=== PATIENT | male | born 1945 | race Caucasian/White ===

== ENCOUNTER 2018-10-28 07:44 | Emergency (ER) | payer OTHER ==
[~2018-10-28] VITALS: Ht 175.3 cm; Wt 67.1 kg
[~2018-10-28 07:44] MED LIST: AMOX-426 PO; ASPI-1153 PO; CALC-823 PO; CARI350T27 PO; CYAN50004 PO; DIF100 PO; GLUC100017 PO; IBUP100T53 PO; LISI10TA5 PO; METO-290 PO; OMEG300C3 PO; OMEP20CA10 PO; TRAM100T34 PO; VITA0.4T18 PO
[2018-10-28 07:58] VITALS: BP_SYST 132
[2018-10-28] MEDS ORDERED: MAG HYDROX/AL HYDROX/SIMETH 30 ML, DICYCLOMINE HCL 20 MG, LIDOCAINE VISCOUS 2% 15ML (PO... PO ONE ×3 (08:15)
[2018-10-28] MEDS ORDERED: NACL 0.9% 1,000 ML IV ONE (08:15)
[2018-10-28 08:51] LABS: BASOPHILS % (AUTO) 0.7 % (0.0-2.0); EOSINOPHILS # (AUTO) 0.1 K/uL (0.0-0.4); EOSINOPHILS % (AUTO) 1.3 % (0.0-4.0); HEMATOCRIT 38.5 % (36-54); HEMOGLOBIN 13.5 g/dL (14.0-18.0); LYMPHOCYTES # (AUTO) 1.7 K/uL (1.0-5.5); LYMPHOCYTES % (AUTO) 28.7 % (20.5-51.5); MEAN CORPUSCULAR HEMOGLOBIN 31 pg (27-31); MEAN CORPUSCULAR HGB CONC 35 % (32-36); MEAN CORPUSCULAR VOLUME 90 fL (79.0-98.0); MONOCYTES # (AUTO) 0.5 K/uL (0.0-1.0); MONOCYTES % (AUTO) 8.6 % (1.7-9.3); NEUTROPHILS # (AUTO) 3.7 K/uL (1.8-7.7); NEUTROPHILS % (AUTO) 60.7 % (40.0-70.0); PLATELET COUNT (AUTO) 191 K/uL (130-430); RED CELL DISTRIBUTION WIDTH 12.6 % (9.0-15.0); WHITE BLOOD COUNT (AUTO) 6.1 K/uL (4.8-10.8)
[2018-10-28 08:58] LABS: ANION GAP 12 (5-15); CALCIUM 9.8 mg/dL (8.4-11.0); CHLORIDE 96 mmol/L (98-107); CREATININE 1.13 mg/dL (0.55-1.30); GLUCOSE 91 mg/dL (70-99); POTASSIUM 3.7 mmol/L (3.5-5.1); SODIUM SERUM 132 mmol/L (136-145); UREA NITROGEN, BLOOD 22 mg/dL (8-21)
[2018-10-28 09:02] LABS: ALANINE AMINOTRANSFERASE 29 U/L (12-78); ALBUMIN 3.7 g/dL (3.4-4.8); ASPARTATE AMINOTRANSFERASE 19 U/L (10-37); LIPASE 125 U/L (73-393); TOTAL BILIRUBIN 1.3 mg/dL (0.0-1.0)
[2018-10-28] MEDS ORDERED: IOHEXOL 100 ML IV ONE (09:32)
[2018-10-28 11:10] LABS: BILIRUBIN,URINE NEGATIVE (NEGATIVE); BLOOD, URINE 2+ (NEGATIVE); CLARITY/URINE SL HAZY (CLEAR); COLOR,URINE YELLOW (YELLOW); GLUCOSE,URINE NEGATIVE (NEGATIVE); KETONES,URINE 2+ (NEGATIVE); LEUKOCYTE ESTERASE ,URINE NEGATIVE (NEGATIVE); NITRITE, URINE NEGATIVE (NEGATIVE); PH,URINE 8.5 (5.0-8.0); PROTEIN URINE NEGATIVE (NEGATIVE)
[2018-10-28 11:17] LABS: BACTERIA,URINE RARE /HPF (None Seen); WBC,URINE 0-3 /HPF (0-3)
[2018-10-28 12:59] VITALS: BP_SYST 135
== END 2018-10-28 12:59 | disposition home or self-care (01) ==
LOC: SED 07:44
DX: R10.13 Epigastric pain (principal); R13.10 Dysphagia, unspecified; I10 Essential (primary) hypertension; Z79.82 Long term (current) use of aspirin; Z79.899 Other long term (current) drug therapy
CPT/HCPCS: 36415; 71045; 74177; 80053; 81000; 83605; 83690; 84484; 85025; 99284; J2001; J7030; Q9967

== ENCOUNTER 2018-12-20 19:20 | Inpatient (IN) | payer OTHER ==
[~2018-12-20] VITALS: Ht 175.3 cm; Wt 66.2 kg
[~2018-12-20 19:20] MED LIST changes: -AMOX-426 PO; -DIF100 PO; -METO-290 PO; -OMEG300C3 PO; -VITA0.4T18 PO
[2018-12-20 19:25] VITALS: BP_SYST 153
[2018-12-20] MEDS ORDERED: NACL 0.9% 1,000 ML IV ONE (21:00)
[2018-12-20] MEDS ORDERED: KETOROLAC TROMETHAMINE 15 MG VIAL IVP ONE (21:00)
[2018-12-20] MEDS ORDERED: MORPHINE 2 MG/ML INJ. SYRINGE IVP ONE (21:00)
[2018-12-20 21:19] LABS: HEMATOCRIT 45.1 % (36-54); HEMOGLOBIN 15.6 g/dL (14.0-18.0); MEAN CORPUSCULAR HEMOGLOBIN 32 pg (27-31); MEAN CORPUSCULAR HGB CONC 35 % (32-36); MEAN CORPUSCULAR VOLUME 92 fL (79.0-98.0); PLATELET COUNT (AUTO) 220 K/uL (130-430); WHITE BLOOD COUNT (AUTO) 22.2 K/uL (4.8-10.8)
[2018-12-20 21:28] LABS: ANION GAP 10 (5-15); CALCIUM 10.1 mg/dL (8.4-11.0); CHLORIDE 100 mmol/L (98-107); CREATININE 1.29 mg/dL (0.55-1.30); GLUCOSE 184 mg/dL (70-99); POTASSIUM 3.6 mmol/L (3.5-5.1); SODIUM SERUM 135 mmol/L (136-145); UREA NITROGEN, BLOOD 18 mg/dL (8-21)
[2018-12-20 21:33] LABS: ALANINE AMINOTRANSFERASE 15 U/L (12-78); ASPARTATE AMINOTRANSFERASE 17 U/L (10-37); TOTAL BILIRUBIN 1.6 mg/dL (0.0-1.0)
[2018-12-20 21:34] LABS: BAND % (MANUAL) 7 % (0-6); BASOPHILS % (MANUAL) 0 % (0-2); EOSINOPHILS % (MANUAL) 0 % (0-7); LYMPHOCYTES % (MANUAL) 3 % (20-46); MONOCYTES % (MANUAL) 5 % (0-11)
[2018-12-20] MEDS ORDERED: VANCOMYCIN HCL 1,000 MG in NS 250 ML IV ONE ×2 (22:15→22:30)
[2018-12-20] MEDS ORDERED: PIPERACILLIN/TAZO 3.375 GM in NS 50 ML IV ONE ×2 (22:15→22:30)
[2018-12-20] MEDS ORDERED: metroNIDAZOLE 500 mg/NS 100 ML IV ONE (22:30)
[2018-12-20] MEDS ORDERED: IOHEXOL 100 ML IV ONE (22:58)
[2018-12-20] MEDS ORDERED: PIPERACILLIN/TAZOBACTAM 3.375 GM/VIAL (ZOSYN) IV ONE (23:09)
[2018-12-21] MEDS ORDERED: NACL 0.9% 1,000 ML IV ONE
[2018-12-21 00:17] LABS: BILIRUBIN,URINE 2+ (NEGATIVE); BLOOD, URINE 3+ (NEGATIVE); CLARITY/URINE CLEAR (CLEAR); COLOR,URINE BROWN (YELLOW); GLUCOSE,URINE NEGATIVE (NEGATIVE); KETONES,URINE 1+ (NEGATIVE); LEUKOCYTE ESTERASE ,URINE NEGATIVE (NEGATIVE); NITRITE, URINE POSITIVE (NEGATIVE); PH,URINE 5.5 (5.0-8.0); PROTEIN URINE 1+ (NEGATIVE)
[2018-12-21 00:30] LABS: BACTERIA,URINE MODERATE /HPF (None Seen); WBC,URINE 0-3 /HPF (0-3)
[2018-12-21] MEDS ORDERED: ACETAMINOPHEN 325 MG TABLET PO PRN (00:30)
[2018-12-21] MEDS ORDERED: MORPHINE 4 MG/ML INJ. SYRINGE IVP PRN (00:30)
[2018-12-21] MEDS ORDERED: metroNIDAZOLE 500 MG TABLET PO ONE (01:15)
[2018-12-21 01:48] VITALS: BP_SYST 162
[2018-12-21] MEDS: NACL 0.9% 1,000 ML IV SCH ×3 (02:39→21:27)
[2018-12-21] MEDS: cloNIDine HCL 0.1 MG TABLET PO PRN ×2 (02:40→23:19)
[2018-12-21] MEDS ORDERED: PIPERACILLIN/TAZOBACTAM 3.375 GM/VIAL (ZOSYN) IV ONE (03:25)
[2018-12-21] MEDS: PIPERACILLIN/TAZO 3.375 GM in NS 50 ML IV SCH ×4 (05:41→23:19)
[2018-12-21 07:55] VITALS: BP_SYST 143
[2018-12-21 12:00] VITALS: BP_SYST 147
[2018-12-21] MEDS ORDERED: TAMSULOSIN HCL 0.4 MG CAP PO ONE (14:00)
[2018-12-21 14:22] LABS: BASOPHILS % (AUTO) 0.1 % (0.0-2.0); EOSINOPHILS % (AUTO) 0.2 % (0.0-4.0); HEMATOCRIT 37.3 % (36-54); HEMOGLOBIN 12.8 g/dL (14.0-18.0); LYMPHOCYTES # (AUTO) 1.2 K/uL (1.0-5.5); LYMPHOCYTES % (AUTO) 10.2 % (20.5-51.5); MEAN CORPUSCULAR HEMOGLOBIN 32 pg (27-31); MEAN CORPUSCULAR HGB CONC 34 % (32-36); MEAN CORPUSCULAR VOLUME 92 fL (79.0-98.0); MONOCYTES # (AUTO) 0.7 K/uL (0.0-1.0); MONOCYTES % (AUTO) 6.6 % (1.7-9.3); NEUTROPHILS # (AUTO) 9.4 K/uL (1.8-7.7); NEUTROPHILS % (AUTO) 82.9 % (40.0-70.0); PLATELET COUNT (AUTO) 165 K/uL (130-430); RED BLOOD CELL COUNT(AUTO) 4.03 MIL/uL (4.2-6.2); RED CELL DISTRIBUTION WIDTH 13.4 % (9.0-15.0); WHITE BLOOD COUNT (AUTO) 11.3 K/uL (4.8-10.8)
[2018-12-21 14:28] LABS: ANION GAP 8 (5-15); CALCIUM 8.4 mg/dL (8.4-11.0); CHLORIDE 107 mmol/L (98-107); CREATININE 0.97 mg/dL (0.55-1.30); GLUCOSE 115 mg/dL (70-99); SODIUM SERUM 140 mmol/L (136-145); UREA NITROGEN, BLOOD 19 mg/dL (8-21)
[2018-12-21 16:00] VITALS: BP_SYST 156
[2018-12-21 19:55] VITALS: BP_SYST 146
[2018-12-21] MEDS ORDERED: GLUCOSAMINE SULFATE 1500 MG PO SCH (21:00)
[2018-12-21] MEDS: LACTOBACILLUS RHAMNOSUS GG 1 CAP CAPSULE PO SCH (21:26)
[2018-12-21] MEDS: TAMSULOSIN HCL 0.4 MG CAP PO SCH (21:26)
[2018-12-22] MEDS: MORPHINE 2 MG/ML INJ. SYRINGE IVP PRN ×2 (01:51→14:41)
[2018-12-22 03:10] VITALS: BP_SYST 151
[2018-12-22] MEDS: PIPERACILLIN/TAZO 3.375 GM in NS 50 ML IV SCH ×3 (05:24→18:24)
[2018-12-22 06:21] LABS: BASOPHILS % (AUTO) 0.3 % (0.0-2.0); EOSINOPHILS # (AUTO) 0.1 K/uL (0.0-0.4); EOSINOPHILS % (AUTO) 0.8 % (0.0-4.0); LYMPHOCYTES # (AUTO) 1.3 K/uL (1.0-5.5); MEAN CORPUSCULAR HEMOGLOBIN 32 pg (27-31); MEAN CORPUSCULAR HGB CONC 34 % (32-36); MEAN CORPUSCULAR VOLUME 93 fL (79.0-98.0); MONOCYTES # (AUTO) 0.6 K/uL (0.0-1.0); NEUTROPHILS # (AUTO) 6.6 K/uL (1.8-7.7); NEUTROPHILS % (AUTO) 76.9 % (40.0-70.0); PLATELET COUNT (AUTO) 130 K/uL (130-430); RED BLOOD CELL COUNT(AUTO) 3.44 MIL/uL (4.2-6.2); RED CELL DISTRIBUTION WIDTH 13.1 % (9.0-15.0); WHITE BLOOD COUNT (AUTO) 8.5 K/uL (4.8-10.8)
[2018-12-22 06:51] LABS: ALANINE AMINOTRANSFERASE 13 U/L (12-78); ALBUMIN 2.5 g/dL (3.4-4.8); ANION GAP 6 (5-15); ASPARTATE AMINOTRANSFERASE 12 U/L (10-37); CALCIUM 8.5 mg/dL (8.4-11.0); CHLORIDE 108 mmol/L (98-107); CREATININE 0.85 mg/dL (0.55-1.30); GLUCOSE 113 mg/dL (70-99); POTASSIUM 3.7 mmol/L (3.5-5.1); SODIUM SERUM 142 mmol/L (136-145); TOTAL BILIRUBIN 0.7 mg/dL (0.0-1.0); UREA NITROGEN, BLOOD 11 mg/dL (8-21)
[2018-12-22 08:01] VITALS: BP_SYST 140
[2018-12-22] MEDS: LACTOBACILLUS RHAMNOSUS GG 1 CAP CAPSULE PO SCH ×2 (09:01→20:16)
[2018-12-22] MEDS: CALCIUM CARBONATE/VITAMIN D3 1 TAB TABLET PO SCH (09:02)
[2018-12-22] MEDS: ASPIRIN 81 MG TABLET(ECOTRIN) PO SCH (09:02)
[2018-12-22] MEDS: TAMSULOSIN HCL 0.4 MG CAP PO SCH ×2 (09:02→20:16)
[2018-12-22] MEDS: PANTOPRAZOLE SODIUM 40 MG TAB PO SCH (09:02)
[2018-12-22] MEDS: CYANOCOBALAMIN 1000 mCg TABLET PO SCH (09:02)
[2018-12-22 11:27] VITALS: BP_SYST 148
[2018-12-22 15:39] VITALS: BP_SYST 149
[2018-12-22] MEDS ORDERED: IOHEXOL 350 mgI/mL, 150 ML INFUS..BTL IV ONE (17:50)
[2018-12-22] MEDS: D5LR 1,000 ML IV SCH (18:25)
[2018-12-22 19:50] VITALS: BP_SYST 146
[2018-12-23] VITALS: BP_SYST 140
[2018-12-23] MEDS: PIPERACILLIN/TAZO 3.375 GM in NS 50 ML IV SCH ×2 (02:37→06:06)
[2018-12-23] MEDS: D5LR 1,000 ML IV SCH (06:07)
[2018-12-23 07:31] LABS: BASOPHILS % (AUTO) 0.4 % (0.0-2.0); EOSINOPHILS # (AUTO) 0.1 K/uL (0.0-0.4); EOSINOPHILS % (AUTO) 2.1 % (0.0-4.0); HEMATOCRIT 32.2 % (36-54); HEMOGLOBIN 11.6 g/dL (14.0-18.0); LYMPHOCYTES # (AUTO) 1.2 K/uL (1.0-5.5); MEAN CORPUSCULAR HEMOGLOBIN 33 pg (27-31); MEAN CORPUSCULAR HGB CONC 36 % (32-36); MEAN CORPUSCULAR VOLUME 92 fL (79.0-98.0); MONOCYTES # (AUTO) 0.4 K/uL (0.0-1.0); MONOCYTES % (AUTO) 6.7 % (1.7-9.3); NEUTROPHILS # (AUTO) 4.6 K/uL (1.8-7.7); NEUTROPHILS % (AUTO) 71.8 % (40.0-70.0); PLATELET COUNT (AUTO) 126 K/uL (130-430); RED BLOOD CELL COUNT(AUTO) 3.52 MIL/uL (4.2-6.2); RED CELL DISTRIBUTION WIDTH 12.8 % (9.0-15.0); WHITE BLOOD COUNT (AUTO) 6.3 K/uL (4.8-10.8)
[2018-12-23 07:38] LABS: CHOLESTEROL 140 mg/dL (<200); HDL CHOLESTEROL 45 mg/dL (>45); LDL CHOLESTEROL 76 mg/dL (<100); TRIGLYCERIDES 70 mg/dL (30-150)
[2018-12-23 08:12] LABS: SODIUM SERUM 137 mmol/L (136-145)
[2018-12-23 08:21] LABS: ANION GAP 9 (5-15); CHLORIDE 104 mmol/L (98-107); GLUCOSE 110 mg/dL (70-99); POTASSIUM 2.8 mmol/L (3.5-5.1)
[2018-12-23 08:22] LABS: CALCIUM 9.1 mg/dL (8.4-11.0); CREATININE 0.91 mg/dL (0.55-1.30); UREA NITROGEN, BLOOD 4 mg/dL (8-21)
[2018-12-23] MEDS: MORPHINE 2 MG/ML INJ. SYRINGE IVP PRN ×3 (08:46→23:29)
[2018-12-23] MEDS: TAMSULOSIN HCL 0.4 MG CAP PO SCH ×2 (08:49→20:03)
[2018-12-23] MEDS: CYANOCOBALAMIN 1000 mCg TABLET PO SCH (08:50)
[2018-12-23] MEDS: PANTOPRAZOLE SODIUM 40 MG TAB PO SCH (08:50)
[2018-12-23] MEDS: CALCIUM CARBONATE/VITAMIN D3 1 TAB TABLET PO SCH (08:50)
[2018-12-23] MEDS: ASPIRIN 81 MG TABLET(ECOTRIN) PO SCH (08:50)
[2018-12-23] MEDS: LACTOBACILLUS RHAMNOSUS GG 1 CAP CAPSULE PO SCH ×2 (08:51→20:03)
[2018-12-23] MEDS ORDERED: POTASSIUM CHLORIDE 20 MEQ TAB.PRT.SR PO ONE ×2 (10:00→17:15)
[2018-12-23 11:21] VITALS: BP_SYST 147
[2018-12-23] MEDS: cefTRIAXone 1 GM in D5W 50 ML IV SCH (13:55)
[2018-12-23 15:54] VITALS: BP_SYST 148
[2018-12-23] MEDS ORDERED: traMADol HCL HCL 50 MG TABLET (ULTRAM) PO ONE (18:15)
[2018-12-23 19:50] VITALS: BP_SYST 144
[2018-12-23] MEDS: POTASSIUM CHLORIDE 20 MEQ TAB.PRT.SR PO SCH (20:03)
[2018-12-23] MEDS: traMADol HCL HCL 50 MG TABLET (ULTRAM) PO SCH (20:04)
[2018-12-24] VITALS: BP_SYST 140
[2018-12-24 07:36] LABS: ANION GAP 6 (5-15); CALCIUM 9.4 mg/dL (8.4-11.0); CHLORIDE 103 mmol/L (98-107); CREATININE 0.77 mg/dL (0.55-1.30); FREE T4 (FREE THYROXINE) 0.9 ng/dl (0.8-1.5); GLUCOSE 89 mg/dL (70-99); POTASSIUM 3.7 mmol/L (3.5-5.1); SODIUM SERUM 136 mmol/L (136-145); THYROID STIMULATING HORMONE 1.51 uIu/mL (0.36-3.74); UREA NITROGEN, BLOOD 4 mg/dL (8-21)
[2018-12-24 08:00] VITALS: BP_SYST 145
[2018-12-24] MEDS: cefTRIAXone 1 GM in D5W 50 ML IV SCH (08:27)
[2018-12-24] MEDS: LACTOBACILLUS RHAMNOSUS GG 1 CAP CAPSULE PO SCH (08:28)
[2018-12-24] MEDS: TAMSULOSIN HCL 0.4 MG CAP PO SCH (08:28)
[2018-12-24] MEDS: PANTOPRAZOLE SODIUM 40 MG TAB PO SCH (08:29)
[2018-12-24] MEDS: CALCIUM CARBONATE/VITAMIN D3 1 TAB TABLET PO SCH (08:29)
[2018-12-24] MEDS: traMADol HCL HCL 50 MG TABLET (ULTRAM) PO SCH (08:29)
[2018-12-24] MEDS: CYANOCOBALAMIN 1000 mCg TABLET PO SCH (08:29)
[2018-12-24] MEDS: ASPIRIN 81 MG TABLET(ECOTRIN) PO SCH (08:29)
[2018-12-24] MEDS: POTASSIUM CHLORIDE 20 MEQ TAB.PRT.SR PO SCH (08:29)
[2018-12-24 12:20] VITALS: BP_SYST 135
[2018-12-24] MEDS ORDERED: FLA250 PO (14:55)
[2018-12-24 16:01] VITALS: BP_SYST 135
[2018-12-24 16:35] VITALS: BP_SYST 116
== END 2018-12-24 16:30 | disposition home health service (06) | DRG 871 ==
LOC: SED 19:20 → STU 12-21 00:27 → OBSVTOIN 12-21 00:27 → STU 12-21 01:18
PROVIDERS: ADMIT Internal Medicine; ATTEND Internal Medicine
DX: A41.9 Sepsis, unspecified organism (principal); E43 Unspecified severe protein-calorie malnutrition; N39.0 Urinary tract infection, site not specified; E87.2 Acidosis; K52.9 Noninfective gastroenteritis and colitis, unspecified; D64.9 Anemia, unspecified; E86.0 Dehydration; I10 Essential (primary) hypertension; K21.9 Gastro-esophageal reflux disease without esophagitis; K59.00 Constipation, unspecified; M19.90 Unspecified osteoarthritis, unspecified site; R07.89 Other chest pain; E87.6 Hypokalemia; Z68.21 Body mass index [BMI] 21.0-21.9, adult; Z80.3 Family history of malignant neoplasm of breast; Z80.8 Family history of malignant neoplasm of other organs or systems; Z87.891 Personal history of nicotine dependence; Z79.899 Other long term (current) drug therapy; Z79.82 Long term (current) use of aspirin
CPT/HCPCS: 36415; 71046-TC; 71275; 74018; 80048; 80053; 80061; 81000-TC; 82550-TC; 83605; 83735-TC; 84439; 84443-TC; 84484; 85007; 85025; 85027; 85379; 85730-TC; 87040-TC; 87045-TC; 87046; 87086; 87230-TC; 89055; 93005; 93306; 93970; 96361; 96365; 96372; 99285; G0378; J0696; J1885; J2270; J2543; J7030; J7060; J7120; Q9967

== ENCOUNTER 2019-07-09 12:06 | Emergency (ER) | payer OTHER ==
[~2019-07-09] VITALS: Ht 177.8 cm; Wt 63.5 kg
[~2019-07-09 12:06] MED LIST changes: +FLA250 PO; -IBUP100T53 PO; -OMEP20CA10 PO; +OMEP20CA11 PO
[2019-07-09 12:25] VITALS: BP_SYST 127
--- NOTE | 2019-07-09 12:27 | NUR ---
Patient to ER bed 07 to gown for evaluation. Side rails up.
--- NOTE | 2019-07-09 12:30 | NUR ---
Pt brought by self, ambulatory , A&Ox4 , pt presents to ER with constipation x 2 days, denies N/V , skin pink and warm, cap refill <3, VSS, afebrile ,respirations even and unlabored.
--- NOTE | 2019-07-09 13:05 | NUR ---
Dr Max at bedside examining patient
[2019-07-09 13:43] VITALS: BP_SYST 127
--- NOTE | 2019-07-09 13:45 | NUR ---
Patient given written and verbal discharge instructions and verbalizes understanding. ER MD discussed with patient the results and treatment provided. Patient in stable condition. ID arm band removed. IV catheter removed intact and dressing applied, no active bleeding. Rx of Glycerin suppository and Mag Citrate given. Patient educated on pain management and to follow up with PMD. Pain Scale 2/10 tolerable for pt. Opportunity for questions provided and answered. Medication side effect fact sheet provided.
== END 2019-07-09 13:42 | disposition home or self-care (01) ==
LOC: SED 12:06
DX: K59.00 Constipation, unspecified (principal); R10.9 Unspecified abdominal pain; K21.9 Gastro-esophageal reflux disease without esophagitis; I10 Essential (primary) hypertension; Z79.82 Long term (current) use of aspirin; Z79.899 Other long term (current) drug therapy
CPT/HCPCS: 74018; 99283

== ENCOUNTER 2020-01-27 15:45 | Emergency (ER) | payer OTHER ==
[~2020-01-27] VITALS: Ht 177.8 cm; Wt 62.6 kg
[~2020-01-27 15:45] MED LIST changes: -ASPI-1153 PO; +ASPI-1393 PO; -OMEP20CA11 PO; +OMEP20CA15 PO
--- NOTE | 2020-01-27 16:03 | NUR ---
Patient to ER bed 02 to gown for evaluation. Side rails up.
[2020-01-27 16:04] VITALS: BP_SYST 142
--- NOTE | 2020-01-27 16:04 | NUR ---
Patient arrived in the ED c/o abdominal pain for the last 2 months. Denied any chest pain or shortness of breath. Denied any fevers, chills, nausea or vomiting. Patient is alert and oriented x4, respirations even and unlabored, speaking in full sentences, and ambulating with a steady gait. VSS, pain level 8/10. Informed of the approximate wait time. Instructed to notify ED staff for any changes in condition or worsening of symptoms while waiting to be seen by an ED provider. Patient verbalized understanding.
--- NOTE | 2020-01-27 16:06 | NUR ---
Dr Porter evaluating patient at bedside
--- NOTE | 2020-01-27 16:09 | NUR ---
Patient ambulated to the bathroom with a steady gait. Urine specimen collected as ordered by Dr. Porter.
[2020-01-27] MEDS ORDERED: MAG HYDROX/AL HYDROX/SIMETH 30 ML, DICYCLOMINE HCL 20 MG, LIDOCAINE VISCOUS 2% 15ML (PO... PO ONE ×3 (16:15)
--- NOTE | 2020-01-27 16:16 | NUR ---
Administered GI Cocktail PO as ordered by Dr. Porter. Patient tolerated the medications well. See eMAR for details.
--- NOTE | 2020-01-27 16:25 | NUR ---
Patient ambulated to the bathroom with a steady gait.
[2020-01-27 16:53] LABS: BASOPHILS % (AUTO) 0.4 % (0.0-2.0); EOSINOPHILS # (AUTO) 0.1 K/uL (0.0-0.4); EOSINOPHILS % (AUTO) 1.6 % (0.0-4.0); HEMATOCRIT 28.3 % (36-54); HEMOGLOBIN 9.2 g/dL (14.0-18.0); LYMPHOCYTES % (AUTO) 20.6 % (20.5-51.5); MEAN CORPUSCULAR HEMOGLOBIN 26 pg (27-31); MEAN CORPUSCULAR HGB CONC 33 % (32-36); MEAN CORPUSCULAR VOLUME 80 fL (79.0-98.0); MONOCYTES # (AUTO) 0.4 K/uL (0.0-1.0); MONOCYTES % (AUTO) 7.3 % (1.7-9.3); NEUTROPHILS # (AUTO) 3.4 K/uL (1.8-7.7); NEUTROPHILS % (AUTO) 70.1 % (40.0-70.0); PLATELET COUNT (AUTO) 182 K/uL (130-430); RED BLOOD CELL COUNT(AUTO) 3.55 MIL/uL (4.2-6.2); RED CELL DISTRIBUTION WIDTH 14.3 % (9.0-15.0); WHITE BLOOD COUNT (AUTO) 4.8 K/uL (4.8-10.8)
[2020-01-27 17:05] LABS: ANION GAP 6 (5-15); CHLORIDE 101 mmol/L (98-107); CREATININE 1.07 mg/dL (0.55-1.30); GLUCOSE 145 mg/dL (70-99); POTASSIUM 3.8 mmol/L (3.5-5.1); SODIUM SERUM 137 mmol/L (136-145); UREA NITROGEN, BLOOD 19 mg/dL (8-21)
[2020-01-27 17:10] LABS: ALANINE AMINOTRANSFERASE 16 U/L (12-78); ALBUMIN 3.3 g/dL (3.4-4.8); ASPARTATE AMINOTRANSFERASE 9 U/L (10-37); LIPASE 30 U/L (73-393); TOTAL BILIRUBIN 0.4 mg/dL (0.0-1.0)
[2020-01-27 18:37] VITALS: BP_SYST 142
--- NOTE | 2020-01-27 18:38 | NUR ---
Patient given written and verbal discharge instructions and verbalizes understanding. ER MD discussed with patient the results and treatment provided. Patient in stable condition. ID arm band removed. Rx of Prilosec, Cipro, Motrin, Flagyl, and Myra given. Patient educated on pain management and to follow up with PMD. Pain Scale 0/10. Opportunity for questions provided and answered. Medication side effect fact sheet provided.
== END 2020-01-27 18:37 | disposition home or self-care (01) ==
LOC: SED 15:45
DX: K57.92 Diverticulitis of intestine, part unspecified, without perforation or abscess without bleeding (principal); R10.13 Epigastric pain; I10 Essential (primary) hypertension; K21.9 Gastro-esophageal reflux disease without esophagitis; Z79.899 Other long term (current) drug therapy; Z79.82 Long term (current) use of aspirin
CPT/HCPCS: 36415; 74176; 80053; 81002; 83690; 85025; 99284; J2001

== ENCOUNTER 2020-03-02 13:35 | Emergency (ER) | payer OTHER, SELFPAY ==
[~2020-03-02] VITALS: Ht 175.3 cm; Wt 65.3 kg
[2020-03-02 14:07] VITALS: BP_SYST 146
--- NOTE | 2020-03-02 14:12 | NUR ---
Placed in room 2. Placed on telemetry monitor, blood pressure machine and pulse oximeter. To gown for exam. Side rails up.
--- NOTE | 2020-03-02 14:13 | NUR ---
Patient came from home for evaluation of abdominal pain and distention. Patient is a poor historian that states his daughter would know everything and he knows nothing. He states he has been having GI issues for a year and does not know what the doctors have diagnosed him with.
--- NOTE | 2020-03-02 14:23 | NUR ---
ER Dr. Gupta at bedside examining patient.
[2020-03-02] MEDS ORDERED: NACL 0.9% 1,000 ML IV ONE ×2 (14:30→15:45)
[2020-03-02] MEDS ORDERED: MORPHINE 4 MG/ML INJ. SYRINGE IM ONE (14:30)
[2020-03-02] MEDS ORDERED: ONDANSETRON HCL 4 MG/2 ML VIAL IVP ONE (14:30)
[2020-03-02 14:45] LABS: BASOPHILS % (AUTO) 0.3 % (0.0-2.0); EOSINOPHILS % (AUTO) 0.7 % (0.0-4.0); HEMATOCRIT 26.2 % (36-54); HEMOGLOBIN 8.4 g/dL (14.0-18.0); LYMPHOCYTES # (AUTO) 0.9 K/uL (1.0-5.5); LYMPHOCYTES % (AUTO) 14.9 % (20.5-51.5); MEAN CORPUSCULAR HEMOGLOBIN 24 pg (27-31); MEAN CORPUSCULAR HGB CONC 32 % (32-36); MEAN CORPUSCULAR VOLUME 74 fL (79.0-98.0); MONOCYTES # (AUTO) 0.5 K/uL (0.0-1.0); MONOCYTES % (AUTO) 7.4 % (1.7-9.3); NEUTROPHILS # (AUTO) 4.8 K/uL (1.8-7.7); NEUTROPHILS % (AUTO) 76.7 % (40.0-70.0); PLATELET COUNT (AUTO) 182 K/uL (130-430); RED BLOOD CELL COUNT(AUTO) 3.56 MIL/uL (4.2-6.2); RED CELL DISTRIBUTION WIDTH 14.8 % (9.0-15.0); WHITE BLOOD COUNT (AUTO) 6.2 K/uL (4.8-10.8)
[2020-03-02 15:17] LABS: ANION GAP 7 (5-15); CALCIUM 8.9 mg/dL (8.4-11.0); CHLORIDE 101 mmol/L (98-107); CREATININE 0.94 mg/dL (0.55-1.30); GLUCOSE 93 mg/dL (70-99); POTASSIUM 3.5 mmol/L (3.5-5.1); SODIUM SERUM 135 mmol/L (136-145); UREA NITROGEN, BLOOD 23 mg/dL (8-21)
[2020-03-02 15:18] LABS: BILIRUBIN,URINE NEGATIVE (NEGATIVE); BLOOD, URINE 1+ (NEGATIVE); CLARITY/URINE CLEAR (CLEAR); COLOR,URINE YELLOW (YELLOW); GLUCOSE,URINE NEGATIVE (NEGATIVE); KETONES,URINE NEGATIVE (NEGATIVE); LEUKOCYTE ESTERASE ,URINE NEGATIVE (NEGATIVE); NITRITE, URINE NEGATIVE (NEGATIVE); PROTEIN URINE NEGATIVE (NEGATIVE); UROBILINOGEN,URINE 0.2 (0.2-1.0)
[2020-03-02 15:30] LABS: ALANINE AMINOTRANSFERASE 21 U/L (12-78); ALBUMIN 3.6 g/dL (3.4-4.8); ASPARTATE AMINOTRANSFERASE 14 U/L (10-37); LIPASE 40 U/L (73-393); TOTAL BILIRUBIN 0.3 mg/dL (0.0-1.0)
[2020-03-02 15:47] LABS: BACTERIA,URINE FEW /HPF (None Seen); MUCUS,URINE 1+ /LPF (None Seen); WBC,URINE 0-3 /HPF (0-3)
[2020-03-02] MEDS ORDERED: MINERAL OIL 133 ML ENEMA RC ONE (16:15)
[2020-03-02] MEDS ORDERED: MAGNESIUM CITRATE 300 ML ORAL SOLUTION PO ONE (16:15)
--- NOTE | 2020-03-02 16:36 | NUR ---
10 minutes after administration of medications patient went to sit on bedside commode and started screaming for the nurse,"nothing is happening!" I educated him to wait for the medication to work.
--- NOTE | 2020-03-02 16:40 | NUR ---
Patient decided to ambulate to restroom.
--- NOTE | 2020-03-02 17:26 | NUR ---
Patient given written and verbal discharge instructions and verbalizes understanding. ER MD discussed with patient the results and treatment provided. Patient in stable condition. ID arm band removed. IV catheter removed intact and dressing applied, no active bleeding. Rx of miralax given. Patient educated on pain management and to follow up with PMD. Pain Scale 0/10. Opportunity for questions provided and answered. Medication side effect fact sheet provided.
[2020-03-02 17:27] VITALS: BP_SYST 142
== END 2020-03-02 17:27 | disposition home or self-care (01) ==
LOC: SED 13:35
DX: K59.00 Constipation, unspecified (principal); Z20.828 Contact with and (suspected) exposure to other viral communicable diseases
CPT/HCPCS: 36415; 74176; 80053; 81000; 83690; 84484; 85025; 87426; 93005; 96361; 96374; 96375; 99285; J2270; J2405; J7030; 76376

== ENCOUNTER 2020-05-21 10:10 | Emergency (ER) | payer OTHER, SELFPAY ==
[~2020-05-21] VITALS: Ht 177.8 cm; Wt 63.5 kg
[2020-05-21 10:10] VITALS: BP_SYST 160
[2020-05-21 11:09] VITALS: BP_SYST 141
== END 2020-05-21 11:09 | disposition home or self-care (01) ==
LOC: SED 10:10
DX: R51.9 Headache, unspecified (principal); I10 Essential (primary) hypertension; K21.9 Gastro-esophageal reflux disease without esophagitis; Z79.899 Other long term (current) drug therapy; Z79.82 Long term (current) use of aspirin; Z20.822 Contact with and (suspected) exposure to COVID-19
CPT/HCPCS: 99283; U0003

== ENCOUNTER 2021-11-07 20:41 | Emergency (ER) | payer OTHER ==
[~2021-11-07 20:41] MED LIST changes: +LISI10TA29 PO; -LISI10TA5 PO
--- NOTE | 2021-11-07 21:13 | NUR ---
PT DRESSING REMOVED FOR ASSESSMENT, BLOOD NOTED TO BE SQUIRTING FROM WOUND, +HEMATOMA. PRESSURE RE-APPLIED AND DR. ARIAS CALLED TO BEDSIDE FOR ASSESSMENT.
[2021-11-07 21:14] VITALS: BP_SYST 150
--- NOTE | 2021-11-07 21:23 | NUR ---
Placed in room 3 . Placed on monitor technician, blood pressure machine and pulse oximeter. To gown for exam. Side rails up. Report given to JEREMIAH WESTON.
[2021-11-07] MEDS ORDERED: LIDOCAINE/EPI 1% 1:100000 20 ML VIAL INJ ONE (21:30)
--- NOTE | 2021-11-07 21:40 | NUR ---
Dr. Cobb at bedside for lac repair. Pt tolerating well.
--- NOTE | 2021-11-07 21:40 | NUR ---
Dr. Cobb applied dressing to laceration.
--- NOTE | 2021-11-07 21:40 | NUR ---
PT BIBA FROM HOME WITH LAC TO THE RIGHT SIDE OF FOREHEAD. FALL WAS UNWITNESSED, DAUGHTER FOUND FATHER ON CONCRETE OUTSIDE OF HOME. PER DAUGHTER PT MALLORY UNSTEADY GAIT BASELINE. PT POOR HISTORIAN DUE TO HX OF DEMENTIA.
[2021-11-07 21:55] LABS: BASOPHILS % (AUTO) 0.6 % (0.0-2.0); EOSINOPHILS % (AUTO) 0.7 % (0.0-4.0); HEMATOCRIT 34.6 % (36-54); HEMOGLOBIN 12.3 g/dL (14.0-18.0); LYMPHOCYTES # (AUTO) 0.6 K/uL (1.0-5.5); LYMPHOCYTES % (AUTO) 10.8 % (20.5-51.5); MEAN CORPUSCULAR HEMOGLOBIN 29 pg (27-31); MEAN CORPUSCULAR HGB CONC 35 % (32-36); MEAN CORPUSCULAR VOLUME 82 fL (79.0-98.0); MONOCYTES # (AUTO) 0.4 K/uL (0.0-1.0); MONOCYTES % (AUTO) 8.1 % (1.7-9.3); NEUTROPHILS # (AUTO) 4.1 K/uL (1.8-7.7); NEUTROPHILS % (AUTO) 79.8 % (40.0-70.0); PLATELET COUNT (AUTO) 165 K/uL (130-430); RED BLOOD CELL COUNT(AUTO) 4.24 MIL/uL (4.2-6.2); RED CELL DISTRIBUTION WIDTH 14.3 % (9.0-15.0); WHITE BLOOD COUNT (AUTO) 5.2 K/uL (4.8-10.8)
[2021-11-07 22:06] LABS: ANION GAP 5 (5-15); CALCIUM 8.7 mg/dL (8.4-11.0); CHLORIDE 99 mmol/L (98-107); CREATININE 0.91 mg/dL (0.55-1.30); GLUCOSE 116 mg/dL (70-99); POTASSIUM 3.1 mmol/L (3.5-5.1); SODIUM SERUM 134 mmol/L (136-145); UREA NITROGEN, BLOOD 10 mg/dL (8-21)
[2021-11-07 22:22] LABS: ALANINE AMINOTRANSFERASE 23 U/L (12-78); ALBUMIN 3.2 g/dL (3.4-4.8); ASPARTATE AMINOTRANSFERASE 24 U/L (10-37); TOTAL BILIRUBIN 1.1 mg/dL (0.0-1.0)
--- NOTE | 2021-11-07 22:25 | NUR ---
COVID SAMPLE COLLECTED AND SENT TO LAB.
--- NOTE | 2021-11-07 22:40 | NUR ---
Son at bedside with patient.
[2021-11-07 22:58] LABS: BILIRUBIN,URINE NEGATIVE (NEGATIVE); BLOOD, URINE 2+ (NEGATIVE); CLARITY/URINE CLEAR (CLEAR); COLOR,URINE YELLOW (YELLOW); GLUCOSE,URINE NEGATIVE (NEGATIVE); KETONES,URINE NEGATIVE (NEGATIVE); LEUKOCYTE ESTERASE ,URINE NEGATIVE (NEGATIVE); NITRITE, URINE NEGATIVE (NEGATIVE); PH,URINE 6.5 (5.0-8.0); PROTEIN URINE NEGATIVE (NEGATIVE)
[2021-11-07] MEDS ORDERED: ACETAMINOPHEN 500 MG TABLET PO ONE (23:15)
[2021-11-07 23:19] LABS: BACTERIA,URINE RARE /HPF (None Seen); WBC,URINE 0-3 /HPF (0-3); YEAST,URINE None Seen /HPF (None Seen)
[2021-11-07] MEDS ORDERED: DIPHTH,PERTUSS(ACELL),TET VAC 0.5 ML VIAL (Tdap) I.M. ONE (23:45)
[2021-11-08 00:35] VITALS: BP_SYST 145
--- NOTE | 2021-11-08 00:35 | NUR ---
Patient given written and verbal discharge instructions and verbalizes understanding. ER Dr. Rutherford discussed with patient the results and treatment provided. Patient in stable condition. ID arm band removed. Patient educated on pain management and to follow up with PMD. Pain Scale 3. Opportunity for questions provided and answered. Medication side effect fact sheet provided.
== END 2021-11-08 00:35 | disposition home or self-care (01) ==
LOC: SED 20:41
DX: S01.81XA Laceration without foreign body of other part of head, initial encounter (principal); R58 Hemorrhage, not elsewhere classified; I10 Essential (primary) hypertension; K21.9 Gastro-esophageal reflux disease without esophagitis; Z79.899 Other long term (current) drug therapy; Z20.822 Contact with and (suspected) exposure to COVID-19; W18.30XA Fall on same level, unspecified, initial encounter; Y93.89 Activity, other specified; Y92.89 Other specified places as the place of occurrence of the external cause; Y99.8 Other external cause status
CPT/HCPCS: 36415; 70450-TC; 71045; 72125-TC; 76376; 80053; 81000; 84484; 85025; 90715; 93005; 99285; 99291